=== PATIENT | female | born 1985 | race Caucasian/White ===

== ENCOUNTER 2023-11-01 19:40 | Emergency (ER) | payer OTHER ==
[~2023-11-01] VITALS: Ht 170.2 cm; Wt 85.7 kg
[2023-11-01 20:20] VITALS: BP 124/83; PULSE 104; RESP 20; TEMP 98; O2SAT 98
[2023-11-01] MEDS ORDERED: PSEU120T22 PO (21:29)
[2023-11-01] MEDS ORDERED: PRED20TA5 PO (21:29)
[2023-11-01] MEDS ORDERED: IBUP-2213 PO (21:29)
[2023-11-01 21:44] VITALS: BP 124/83; PULSE 104; RESP 20; TEMP 98; O2SAT 98
== END 2023-11-01 21:44 | disposition home or self-care (01) ==
LOC: MED 19:40
DX: J32.9 Chronic sinusitis, unspecified (principal); Z79.899 Other long term (current) drug therapy
CPT/HCPCS: 99283